=== PATIENT | male | born 1950 | race Caucasian/White ===

== ENCOUNTER → 2016-04-29 | Outpatient (CLI) | payer BC | LOC: GMAL 11:42 | PROVIDERS: ATTEND Family Medicine | DX: R97.20 Elevated prostate specific antigen [PSA] (principal) ==

== ENCOUNTER → 2016-06-29 | Outpatient (CLI) | payer BC | END | disposition home or self-care (01) | LOC: GMAL 14:08 | PROVIDERS: ATTEND Family Medicine | DX: D51.3 Other dietary vitamin B12 deficiency anemia (principal); D53.9 Nutritional anemia, unspecified ==

== ENCOUNTER → 2017-01-05 | Outpatient (CLI) | payer MEDICARE, OTHER | END | disposition home or self-care (01) | LOC: GMAL 10:38 | PROVIDERS: ATTEND Family Medicine | DX: R53.82 Chronic fatigue, unspecified (principal); R97.20 Elevated prostate specific antigen [PSA]; E55.9 Vitamin D deficiency, unspecified; R30.0 Dysuria ==

== ENCOUNTER → 2017-07-05 | Outpatient (CLI) | payer OTHER | LOC: GMAL 10:20 | PROVIDERS: ATTEND Family Medicine | DX: Z12.5 Encounter for screening for malignant neoplasm of prostate (principal) ==

== ENCOUNTER → 2017-09-01 | Outpatient (CLI) | payer OTHER | LOC: GMAL 10:48 | PROVIDERS: ATTEND Family Medicine | DX: R30.0 Dysuria (principal) ==

== ENCOUNTER → 2017-10-18 | Outpatient (CLI) | payer OTHER | LOC: GMAL 16:54 | PROVIDERS: ATTEND Family Medicine | DX: R30.0 Dysuria (principal) ==

== ENCOUNTER → 2017-11-05 | Outpatient (CLI) | payer OTHER | LOC: GMAL 12:26 | PROVIDERS: ATTEND Family Medicine | DX: N30.00 Acute cystitis without hematuria (principal) ==

== ENCOUNTER → 2017-11-26 | Outpatient (CLI) | payer OTHER | LOC: GMAL 10:30 | PROVIDERS: ATTEND Family Medicine | DX: D53.9 Nutritional anemia, unspecified (principal) ==

== ENCOUNTER → 2018-01-25 | Outpatient (CLI) | payer OTHER ==
--- NOTE | 2018-01-25 15:52 | MRI ---
EXAM DESCRIPTION: Brain w/wo Contrast: Magnetic Resonance Imaging. CLINICAL HISTORY: VERTIGO COMPARISON: None. TECHNIQUE: Multiplanar, high-field MRI, multiple conventional sequences, without and with gadolinium IV contrast. No adverse reactions. Multiple axial diffusion sequences. FINDINGS: Normal FLAIR and T2-weighted signal in the periventricular white matter and puentes-white matter junctions of the cerebral hemispheres. . Normal signal in the bilateral basal ganglia. No hemorrhage, no cerebral edema, no mass-effect. Normal contrast enhancement. Normal signal in the brainstem and cerebellar hemispheres. No hemorrhage, no cerebral edema, no mass-effect. Normal contrast enhancement. Concordance of the diffusion and non-diffusion sequences with no evidence of acute or subacute infarction. Cortical sulci, ventricles, and other CSF spaces, and the subdural spaces are normally configured.. No effacement or displacement. No midline shift. No extra-axial hemorrhage. Normal contrast enhancement. Normal flow signal void in the major vessels of the [place], and the venous sinuses. IACs are symmetric bilaterally. Normal signal in the bilateral mastoid air cells. No mass effect in the bilateral Cerebellopontine angles. Normal contrast enhancement. Pituitary gland occupies most of the sella. Normal contrast enhancement. Base of the cerebellar tonsils is just above the foramen magnum. Mucosal thickening and possibly fluid in the left maxillary antrum with fluid versus mucosal thickening in the anterior ethmoid air cells. Mucosal thickening in the included right maxillary antrum but no air-fluid levels.. Inferior posterior nasal passages and the anterior nasopharynx are partially obscured due to metallic dental hardware. The bony calvarium is intact. IMPRESSION: 1. Normal signal in the cerebral hemispheres, midbrain, brainstem and posterior fossa with normal enhancement. No mass effect, cerebral edema, intra-axial or extra-axial hemorrhage. No diffusion restriction. 2. Normal noncontrast diffusion scan, with no evidence of acute or subacute infarction. 3. Chronic and acute sinusitis in the paranasal cavities 4. Limited visualization of the facial structures due to artifact from dental hardware. Electronically signed by: Carlitos White MD 01/25/2018 3:50 PM CDT
== END ==
LOC: MRI 07:49
PROVIDERS: ATTEND Family Medicine
DX: R42 Dizziness and giddiness (principal); J32.9 Chronic sinusitis, unspecified

== ENCOUNTER → 2018-05-10 | Outpatient (CLI) | payer OTHER | LOC: GMAL 11:02 | PROVIDERS: ATTEND Family Medicine | DX: D51.3 Other dietary vitamin B12 deficiency anemia (principal); D53.9 Nutritional anemia, unspecified; E55.9 Vitamin D deficiency, unspecified; R97.20 Elevated prostate specific antigen [PSA]; R53.82 Chronic fatigue, unspecified ==

== ENCOUNTER → 2018-06-29 | Outpatient (CLI) | payer OTHER ==
--- NOTE | 2018-06-29 09:36 | US ---
Soft tissue ultrasound abdominal wall INDICATION: Palpable mass TECHNIQUE: Grayscale sonogram with color Doppler anterior abdominal wall FINDINGS: There is a fairly diffuse hypoechoic region with shadowing 4 cm to the left of the umbilicus. The overall area measures about 2.5 cm wide. 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 CT or MRI may be more specific if needed clinically. No drainable fluid collection noted. No bowel herniation noted. 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
== END ==
LOC: US 08:17
PROVIDERS: ATTEND Family Medicine
DX: R19.00 Intra-abdominal and pelvic swelling, mass and lump, unspecified site (principal)

== ENCOUNTER 2018-09-29 11:21 | Emergency (ER) | payer OTHER ==
--- NOTE | 2018-09-29 11:40 | ED.PDOC ---
History of Present Illness - General Time Seen by Provider: 09/29/18 11:28 Source: patient, RN notes reviewed Exam Limitations: no limitations Additional Information: 67 YEAR OLD WHITE SENT FROM HIS PCP OFFICE FOR EVALUATION OF CHEST PAIN / PRE SSURE FOR 3 MONTHS HE STATES THE PAIN IS 2 IN A SCALE OF 1-10 HE HAS NO SHORTNESS OF BREATH DIAPHORESIS FAINTING SPELLS ASSOCIATED WITH IT THE PAIN IS OF SAME INTENSITY BUT HE IS EXPEREINCING IT MORE OFTEN HE HAS HYPERTENSION TYPE 11 DIABETES DISLIPIDEMIA FATHER HAS HYPERTENSION CAD AND OF CA LUNG AT AGE 55 - History of Present Illness Timing/Duration: intermittent Severity: mild Improving Factors: nothing Worsening Factors: nothing Associated Symptoms: chest pain Allergies/Adverse Reactions: Allergies NO KNOWN ALLERGY Allergy (Verified 12/04/15 09:43) Home Medications: Ambulatory Orders Simvastatin [Zocor] 40 mg PO BEDTIME 12/04/15 Aspirin [Aspirin Childrens] 81 mg PO BEDTIME 09/29/18 Cetirizine HCl [ZyrTEC] 5 mg PO DAILY 09/29/18 Hydrochlorothiazide 12.5 mg PO DAILY 09/29/18 Insulin Aspart [Novolog] 5 unit SC BID 09/29/18 Insulin NPH (Human) (Isophane) [Novolin N] 10 unit SC BID 09/29/18 Telmisartan [Micardis] 80 mg PO DAILY 09/29/18 Review of Systems - Review of Systems Constitutional: States: no symptoms reported EENTM: States: no symptoms reported Respiratory: States: no symptoms reported Cardiology: States: see HPI Gastrointestinal/Abdominal: States: no symptoms reported Genitourinary: States: no symptoms reported Musculoskeletal: States: no symptoms reported Skin: States: no symptoms reported Neurological: States: no symptoms reported Endocrine: States: no symptoms reported Hematologic/Lymphatic: States: no symptoms reported Past Medical History (General) - Patient Medical History Hx Stroke: No Hx Cardiac Disorders: Yes Hx Congestive Heart Failure: No Hx Hypertension: Yes Hx Diabetes: Yes - insulin dependent Hx MRSA: No - Vaccination History Hx Influenza Vaccination: Yes - 2014 Hx Pneumococcal Vaccination: No - Social History Hx Tobacco Use: No Family Medical History - Family History Father Living Status: Age at (years of age): 56 Cause of : cancer Hx Family Hypertension: Yes Hx Cardiac Disease: Yes Physical Exam - Physical Exam General Appearance: Alert, Comfortable Eye Exam: bilateral normal Ears, Nose, Throat: hearing grossly normal, normal ENT inspection, normal pharynx Neck: non-tender, full range of motion, supple Respiratory: chest non-tender, lungs clear, normal breath sounds, no respiratory distress Cardiovascular/Chest: normal peripheral pulses, regular rate, rhythm, no edema, no gallop, no JVD Gastrointestinal/Abdominal: normal bowel sounds, non tender, soft, no organomegaly Extremity: normal range of motion, non-tender, normal inspection Neurologic: infertility nurse II-XII nml as tested, no motor/sensory deficits, normal mood/affect, oriented x 3 DTR: 0: Patellar, right Lymphatic: no adenopathy Progress - Progress Progress: 09/29/18 12:42 Laboratory Tests 09/29/18 11:34 WBC 7.5 RBC 4.87 Hgb 14.7 Hct 44.4 MCV 91.3 MCH 30.2 MCHC 33.1 RDW 13.9 Plt Count 211 MPV 8.7 Absolute Neuts (auto) 5.00 Absolute Lymphs (auto) 1.80 Absolute Monos (auto) 0.50 Absolute Eos (auto) 0.20 Absolute Basos (auto) 0.10 Neutrophils % 66.5 Lymphocytes % 23.7 Monocytes % 6.8 Eosinophils % 2.1 Basophils % 0.9 PT 9.6 INR 0.96 PTT (SP) 25.4 Sodium 136 Potassium 4.0 Chloride 100 L Carbon Dioxide 27 Anion Gap 13.0 BUN 22 H Creatinine 0.84 BUN/Creatinine Ratio 26.2 H Random Glucose 256 H Serum Osmolality 284.0 Calcium 9.5 Magnesium 1.9 Creatine Kinase 116 CK-MB (CK-2) 4.0 Troponin I < 0.02 - Results/Orders Results/Orders: 3.00 pm PATIENT REMAINS STABLE NO CHEST PAIN REPORTED BLOOD SUGAR 189 MG/DL PATIENT GOT ACCEPTED BY [facility] UNDER DR ABDULAZIZ WAGNER [employer]PER[employer] FOR FURTHER CARDIAC WORK UP - EKG/XRAY/CT EKG: Sinus, nonspecific ST T wave Chg Comments: NSR NON SPECIFIC ST CHANGES NO ST ELEVATION Departure - Departure Clinical Impression: 2 or more angina events in past 24 hours, Chest pain, Concern about cardiovascular disease without diagnosis, Cardiovascular disease Time of Disposition: 12:44 Disposition: Transfer to Hospital Condition: Fair Referrals: Jarad Sutton III, MD [Primary Care Provider] - 1-2 Weeks Home Medications: Ambulatory Orders Simvastatin [Zocor] 40 mg PO BEDTIME 12/04/15 Aspirin [Aspirin Childrens] 81 mg PO BEDTIME 09/29/18 Cetirizine HCl [ZyrTEC] 5 mg PO DAILY 09/29/18 Hydrochlorothiazide 12.5 mg PO DAILY 09/29/18 Insulin Aspart [Novolog] 5 unit SC BID 09/29/18 Insulin NPH (Human) (Isophane) [Novolin N] 10 unit SC BID 09/29/18 Telmisartan [Micardis] 80 mg PO DAILY 09/29/18 Comments: PATIENT AND FAMILY WOULD LIKE TO GO BY PRIVATE VEHICLE TO [facility] THEY UNDERSTAND THE RISK AND BENEFITS OF THEIR CHOICE Transfer to Outside Facility - Transfer Information Accepting Facility: [facility] Reason for Transfer: required specialist not available
--- NOTE | 2018-09-29 12:10 | RAD ---
EXAM DESCRIPTION: Chest,1 View CLINICAL HISTORY: 67 years Male, CHEST PAIN COMPARISON: None. TECHNIQUE: AP portable chest. FINDINGS: Heart size is normal with normal pulmonary vascularity. No consolidating infiltrate. No pulmonary mass or worrisome nodule. No pneumothorax or pleural effusion. Bones are unremarkable. IMPRESSION: No acute process is identified in the chest. Electronically signed by: Gary Vallejo MD 09/29/2018 12:08 PM CDT
[2018-09-29 14:59] VITALS: O2SAT 99
[2018-09-29 15:01] VITALS: BP 173/84; TEMP 97.9
== END 2018-09-29 15:10 | disposition short-term general hospital (02) ==
LOC: ER 11:21
DX: I20.9 Angina pectoris, unspecified (principal); I51.9 Heart disease, unspecified; I10 Essential (primary) hypertension; E11.9 Type 2 diabetes mellitus without complications; E78.5 Hyperlipidemia, unspecified; Z79.4 Long term (current) use of insulin; Z79.82 Long term (current) use of aspirin; Z79.899 Other long term (current) drug therapy; Z82.49 Family history of ischemic heart disease and other diseases of the circulatory system

== ENCOUNTER → 2018-12-04 | Outpatient (CLI) | payer OTHER | LOC: SL 20:22 | PROVIDERS: ATTEND Family Medicine | DX: G47.33 Obstructive sleep apnea (adult) (pediatric) (principal) ==

== ENCOUNTER → 2019-01-24 | Outpatient (CLI) | payer OTHER | LOC: GMAL 16:44 | PROVIDERS: ATTEND Family Medicine | DX: D51.3 Other dietary vitamin B12 deficiency anemia (principal); R53.82 Chronic fatigue, unspecified; I10 Essential (primary) hypertension; E10.9 Type 1 diabetes mellitus without complications; E78.49 Other hyperlipidemia ==

== ENCOUNTER → 2019-01-30 | Outpatient (CLI) | payer OTHER ==
--- NOTE | 2019-01-30 11:21 | CT ---
EXAM DESCRIPTION: Abdomen/Pelvis w/wo Contrast CLINICAL HISTORY: 68 years Male, ABNORMAL WEIGHT LOSS COMPARISON: None available. TECHNIQUE: Contiguous 3 mm axial images were obtained from the lung bases to the level of the proximal femora before and after the administration of intravenous and oral contrast. Sagittal and coronal reconstructions were reviewed. FINDINGS: THORAX: The imaged lower thorax demonstrates no gross abnormality. LIVER: The liver demonstrates normal size and density with no intrahepatic biliary ductal dilatation or focal masses. GALLBLADDER: Grossly unremarkable. PANCREAS: Appears normal with no cystic or solid lesions. SPLEEN: Normal ADRENAL GLANDS: Normal with no nodules or masses. KIDNEYS: Nonobstructive calculi measuring up to 4 mm are noted in both kidneys. No hydronephrosis or perinephric fluid collections bilaterally. Nonspecific bilateral perinephric stranding. The visualized ureters appear grossly unremarkable. STOMACH: Not well distended limiting detailed evaluation. SMALL BOWEL: The small bowel loops demonstrate variable degrees of distention with no abnormal dilatation or other signs to suggest bowel obstruction. LARGE BOWEL: Moderate to large amount of fecal material is noted throughout the colon, consistent with constipation. The appendix is not definitively visualized. No evidence of free intraperitoneal air or fluid. RETROPERITONEUM: The abdominal aorta is nonaneurysmal with moderate atherosclerosis. The inferior vena cava is normal in size and caliber. No abnormally enlarged retroperitoneal lymph nodes are identified. URINARY BLADDER: Not well distended limiting detailed evaluation. The prostate gland appears mildly heterogenous. The seminal vesicles appear normal. ADDITIONAL FINDINGS: Mild diffuse mesenteric congestion is identified. BONES: Mild degenerative changes are identified in the visualized bones.No evidence of osteophytic or osteoblastic lesions. IMPRESSION: 1. Nonobstructive nephrolithiasis of both kidneys measuring up to 4 mm. 2. Constipation. 3. Heterogenous appearing prostate gland. This exam was performed according to our departmental dose-optimization program, which includes automated exposure control, adjustment of the mA and/or kV according to patient size and/or use of iterative reconstruction technique. Electronically signed by: Angelica Nunez MD 01/30/2019 11:19 AM CDT
== END ==
LOC: CT 07:59
PROVIDERS: ATTEND Family Medicine
DX: N20.0 Calculus of kidney (principal); K59.00 Constipation, unspecified; R63.4 Abnormal weight loss

== ENCOUNTER → 2019-11-21 | Outpatient (CLI) | payer OTHER | LOC: GMAL 12:05 | PROVIDERS: ATTEND Family Medicine | DX: D51.3 Other dietary vitamin B12 deficiency anemia (principal); E55.9 Vitamin D deficiency, unspecified; R97.20 Elevated prostate specific antigen [PSA]; E10.9 Type 1 diabetes mellitus without complications; Z79.899 Other long term (current) drug therapy; E78.49 Other hyperlipidemia ==

== ENCOUNTER → 2020-06-25 | Outpatient (CLI) | payer OTHER | LOC: GMAL 11:56 | PROVIDERS: ATTEND Family Medicine | DX: D53.9 Nutritional anemia, unspecified (principal); E78.49 Other hyperlipidemia; E10.9 Type 1 diabetes mellitus without complications; I10 Essential (primary) hypertension ==